=== PATIENT | female | born 1955 | race Caucasian/White ===

== ENCOUNTER 2018-02-03 21:06 | Emergency (ER) | payer MEDICARE, MEDICAID ==
[~2018-02-03] VITALS: Ht 1637.4 cm; Wt 58.0 kg
[~2018-02-03 21:06] MED LIST: FLUT1DIS4 INH; PHEN100C4 PO; RISP1TAB3 PO; RISP2TAB3 PO; SIMV20TA5 PO; SPIIN INH; TRAM50TA2 PO
[2018-02-03] MEDS ORDERED: LORazepam 2 mg/ml vial IM ONE (21:25)
[2018-02-03] MEDS ORDERED: haloperidol 5mg tablet PO ONE (21:25)
[2018-02-03] MEDS ORDERED: haloperidol lactate 5mg/ml inj IM ONE (21:45)
[2018-02-03 22:53] LABS: BASOPHILS % (AUTO) 0.5 % (0-1); EOSINOPHILS # (AUTO) 0.1 X10'3 (0-0.9); EOSINOPHILS % (AUTO) 0.8 % (0-6); HEMATOCRIT 35.8 % (35.0-45.0); HEMOGLOBIN 12.4 g/dl (12.0-16.0); LYMPHOCYTES # (AUTO) 1.4 X10'3 (1.1-4.8); LYMPHOCYTES % (AUTO) 20.9 % (21-51); MEAN CORPUSCULAR HEMOGLOBIN 31.7 PG (27.0-31.0); MEAN CORPUSCULAR HGB CONC 34.5 % (33.0-36.5); MEAN CORPUSCULAR VOLUME 91.8 FL (78-98); MEAN PLATELET VOLUME 9.5 FL (7.4-10.4); MONOCYTES # (AUTO) 0.6 X10'3 (0-0.9); MONOCYTES % (AUTO) 8.2 % (2-12); NEUTROPHILS # (AUTO) 4.7 X10'3 (1.8-7.7); NEUTROPHILS % (AUTO) 69.6 % (42-75); PLATELET COUNT 144 X10'3 (140-440); RED CELL DISTRIBUTION WIDTH 13.8 % (11.5-14.5); WHITE BLOOD COUNT 6.8 X10'3 (4.5-11.0)
[2018-02-03 23:04] LABS: CLARITY,URINE CLEAR (Clear); COLOR,URINE YELLOW (Yellow); GLUCOSE, URINE NEGATIVE (Neg); KETONES,URINE TRACE mg/dl (Neg); LEUKOCYTE ESTERASE ,URINE NEGATIVE (Neg); NITRITES, URINE NEGATIVE (Neg); OCCULT BLOOD,URINE NEGATIVE (Neg); PH,URINE 5.5 (4.8-8.0); PROTEIN,URINE 30 mg/dl (Neg)
[2018-02-03 23:09] LABS: ALANINE AMINOTRANSFERASE 33 U/L (12-78); ALBUMIN 3.9 G/DL (3.4-5.0); ALBUMIN/GLOBULIN RATIO 1.4 (1.1-1.5); ALKALINE PHOSPHATASE 119 IU/L (46-116); ANION GAP 10 (8-16); ASPARTATE AMINO TRANSFERASE 18 U/L (10-37); BILIRUBIN,TOTAL 0.6 MG/DL (0.1-1.0); BLOOD UREA NITROGEN 23 MG/DL (7-18); BUN/CREATININE RATIO 26.4 (6.6-38.0); CALCIUM 8.5 MG/DL (8.5-10.1); CHLORIDE 107 MMOL/L (99-107); CREATININE 0.87 MG/DL (0.40-0.90); GLUCOSE 81 MG/DL (70-104); POTASSIUM 3.4 MMOL/L (3.5-5.1); SODIUM 142 MMOL/L (135-145); TOTAL CARBON DIOXIDE 25.2 MMOL/L (24-32); TOTAL PROTEIN 6.7 G/DL (6.4-8.2); eGFR 66 ML/MIN
[2018-02-03 23:11] LABS: URINE AMPHETAMINE SCREEN POSITIVE (Neg); URINE BARBITUATE SCREEN NEGATIVE (Neg); URINE BENZODIAZEPINES SCREEN NEGATIVE (Neg); URINE CANNABINOID SCREEN NEGATIVE (Neg); URINE COCAINE SCREEN NEGATIVE (Neg); URINE METHADONE SCREEN NEGATIVE (Neg); URINE OPIATE SCREEN NEGATIVE (Neg); URINE PHENCYCLIDINE SCREEN NEGATIVE (Neg)
[2018-02-03 23:17] LABS: ETHANOL < 0.010 GM/DL (0.0-0.010)
[2018-02-03 23:25] LABS: ACETAMINOPHEN < 2.0 UG/ML (10-30)
[2018-02-03 23:35] LABS: UA COLLECTION TYPE STRAIGHT CATH
[2018-02-03 23:37] LABS: BACTERIA,URINE FEW /HPF (Neg); HYALINE CASTS 0-3 /LPF (NEGATIVE); MUCUS STRANDS MODERATE /LPF (Neg); RBC,URINE NONE SEEN /HPF (0-2); SQUAMOUS EPITHELIAL CELL,UR FEW /LPF (FEW); WBC,URINE NONE SEEN /HPF (0-4)
[2018-02-04 00:49] LABS: PHENYTOIN (DILANTIN) 8.5 UG/ML (10.0-20.0)
[2018-02-04] MEDS ORDERED: LORazepam 2 mg/ml vial IM ONE (04:30)
[2018-02-04] MEDS ORDERED: traMADol 50MG tablet PO PRN (07:45)
[2018-02-04] MEDS ORDERED: albuterol 2.5 MG/3 ML nebule NEB PRN (07:50)
[2018-02-04] MEDS ORDERED: albuterol 2.5 MG/3 ML nebule NEB SCH (07:50)
[2018-02-04] MEDS ORDERED: risperiDONE 0.5mg tablet PO SCH (08:00)
[2018-02-04] MEDS ORDERED: phenytoin sod ER 100mg capsule PO ONE (08:00)
[2018-02-04] MEDS ORDERED: ipratropium 0.5 MG/2.5ML nebule IH SCH (08:00)
[2018-02-04] MEDS ORDERED: ipratropium/albuterol 3ml nebule NEB PRN (11:05)
[2018-02-04] MEDS: BUDESONIDE 0.25 MG/2 ML AMPUL.NEB IH SCH ×2 (11:35→20:51)
[2018-02-04] MEDS ORDERED: acetaminophen 325mg tablet PO ONE ×2 (12:25→13:30)
[2018-02-04] MEDS ORDERED: atorvastatin 10mg tablet PO SCH (21:00)
[2018-02-04] MEDS ORDERED: risperiDONE 2mg tablet PO SCH (21:00)
[2018-02-04] MEDS ORDERED: phenytoin sod ER 100mg capsule PO SCH (21:00)
[2018-02-04 22:24] VITALS: BP 95/74
== END 2018-02-04 22:29 | disposition home or self-care (01) ==
LOC: ER 21:07
DX: S00.03XA Contusion of scalp, initial encounter (principal); S80.02XA Contusion of left knee, initial encounter; F23 Brief psychotic disorder; F32.9 Major depressive disorder, single episode, unspecified; F15.90 Other stimulant use, unspecified, uncomplicated; Z56.0 Unemployment, unspecified; Z98.890 Other specified postprocedural states; Z88.1 Allergy status to other antibiotic agents; Z79.899 Other long term (current) drug therapy; X58.XXXA Exposure to other specified factors, initial encounter; Y93.89 Activity, other specified; Y92.89 Other specified places as the place of occurrence of the external cause; Y99.8 Other external cause status
CPT/HCPCS: 36415; 70450; 73564; 80053; 80185; 80305; 80320; 80329; 81001; 84443; 85025; 94640; 94760; 96372; 99285; J1630; J2060